=== PATIENT | male | born 1970 | race Caucasian/White ===

== ENCOUNTER 2025-03-25 09:30 | Outpatient (RCR) | payer BC, SELFPAY ==
[2025-02-18 10:47] VITALS: BMI 38.8
[2025-02-18 11:50] VITALS: BMI 38.8
[2025-03-25 09:30] VITALS: BMI 37.2
[2025-03-25 09:33] VITALS: BMI 37.2
== END 2025-05-10 10:18 | disposition home or self-care (01) ==
LOC: ANHDMC 09:30
PROVIDERS: PCP Internal Medicine; Visit Provider Internal Medicine
DX: E11.9 Type 2 diabetes mellitus without complications (principal); Z71.3 Dietary counseling and surveillance
CPT/HCPCS: 97802; 97803

== ENCOUNTER 2025-05-26 10:47 | Outpatient (RCR) | payer BC, SELFPAY ==
[2025-05-26 10:54] VITALS: BMI 39.2
[2025-05-26 11:00] VITALS: BMI 39.2
== END 2025-08-09 10:07 | disposition home or self-care (01) ==
LOC: ANHDMC 10:47
PROVIDERS: PCP Internal Medicine; Visit Provider Internal Medicine
DX: E11.9 Type 2 diabetes mellitus without complications (principal); Z71.3 Dietary counseling and surveillance
CPT/HCPCS: 97803